=== PATIENT | female | born 2000 | race Caucasian/White ===

== ENCOUNTER 2021-07-20 11:24 | Emergency (ER) | payer OTHER ==
[~2021-07-20 11:24] MED LIST: ALLERGY RELIEF10 M3 PO; COLACE 100MG C100 MG PO; IBUPROFEN600 MG PO; LORTAB 5-325 M1 EACH PO; LORTAB 7.5-3251 EACH PO; MAXALT10 MG PO; NORCO 5-325 TA1 EACH PO; OMEPRAZOLE20 M1 PO; ONDANSETRON ODT4 MG PO; PAXIL30 MG PO; PRENATAL VITAM1 EAC3 PO; RIZATRIPTAN10 MG PO; SPRINTEC 28 DA1 EACH PO; SYNTHROID25 MCG PO; ZANTAC150 MG PO; ZOFRAN4 MG PO
[2021-07-20 12:39] LABS: HEMOGLOBIN 13.3 gm/dl (12.3-15.3); RED BLOOD COUNT 4.24 M/UL (4.00-5.10); WHITE BLOOD COUNT 6.2 K/UL (4.5-11.0)
[2021-07-20 12:58] LABS: BUN/CREATININE RATIO 13 (0-10)
[2021-07-20] MEDS ORDERED: BENTYL 20MG TAB20 MG PO (17:32)
[2021-07-20] MEDS ORDERED: PHENERGAN 12.12.5 M1 PO (17:32)
== END 2021-07-20 17:55 | disposition home or self-care (01) ==
LOC: ER1 11:24
PROVIDERS: Physician Assistant Medical
DX: R10.31 Right lower quadrant pain (principal); R11.2 Nausea with vomiting, unspecified; F17.290 Nicotine dependence, other tobacco product, uncomplicated
CPT/HCPCS: 80053; 81001; 84703; 85025; 96374; 96375; 96376; 99284; J2270; J2405; J7030; Q9967

== ENCOUNTER → 2021-10-20 | Outpatient (CLI) | payer OTHER ==
[~2021-10-20] MED LIST changes: +BENTYL 20MG TAB20 MG PO; +PHENERGAN 12.12.5 M1 PO
== END ==
LOC: LAB 14:25
DX: Z20.822 Contact with and (suspected) exposure to COVID-19 (principal); R53.83 Other fatigue
CPT/HCPCS: U0002